=== PATIENT | female | born 1995 | race Caucasian/White ===

== ENCOUNTER 2021-04-18 01:53 | Emergency (ER) | payer SELFPAY ==
[~2021-04-18] VITALS: Ht 182.9 cm; Wt 110.0 kg
[2021-04-18] MEDS ORDERED: SODIUM CHLORIDE 0.9% 1,000 ML IV ONE (03:15)
[2021-04-18 04:39] LABS: BASOPHILS % 0.3 % (0.0-2.0); EOSINOPHILS % 0.2 % (0.0-5.0); HEMOGLOBIN. 11.7 g/dL (12.0-16.0); LYMPHOCYTES % 33.1 % (20.0-50.0); MEAN CORPUSCULAR HEMOGLOBIN 29.5 pg (28.0-32.0); MEAN CORPUSCULAR VOLUME 85.9 fL (81.0-99.0); MEAN PLATELET VOLUME 8.8 fl (7.4-10.4); MONOCYTES % 4.7 % (2.0-8.0); NEUTROPHILS % 61.7 % (40.0-76.0); PLATELET 426 x1000/uL (130-400); RED BLOOD CELL COUNT 3.95 mill/uL (4.2-5.4)
[2021-04-18 04:45] LABS: CHLORIDE 113 mEq/L (98-107)
[2021-04-18 04:48] LABS: ETHANOL BLOOD 255 mg/dL
[2021-04-18 04:51] LABS: HCG SCREEN NEGATIVE
[2021-04-18 08:00] VITALS: BP 126/82
== END 2021-04-18 08:13 | disposition home or self-care (01) ==
LOC: ER 01:53
DX: F10.129 Alcohol abuse with intoxication, unspecified (principal); Y90.8 Blood alcohol level of 240 mg/100 ml or more
CPT/HCPCS: 36415; 70450; 80048; 80320; 84703; 85025; 99284; J7030; G0480